=== PATIENT | female | born 1990 | race Caucasian/White ===

== ENCOUNTER → 2016-10-16 | Outpatient (CLI) | payer OTHER ==
--- NOTE | 2016-10-16 16:18 | DX ---
Limited lumbar spine AP and lateral. History: Chronic back pain with right sciatica. Findings: Vertebral body heights are well maintained. There are no subluxations. No fractures are see n. Intervertebral disks appear to be normal. Impression: Normal limited lumbar spine series.
== END ==
LOC: FIMAGING 13:24
PROVIDERS: ATTEND Family Medicine
DX: M54.41 Lumbago with sciatica, right side (principal); G89.29 Other chronic pain

== ENCOUNTER → 2016-11-04 | Outpatient (CLI) | payer OTHER ==
--- NOTE | 2016-11-04 23:16 | MR ---
MRI Lower Extremity, Right Hip HISTORY: Right hip pain. Pain refractory to physical therapy. ICD-10 code G89.29. TECHNIQUE: MRI was performed of the right hip and pelvis using a 3.0 [employer] MRI system. Large field- of-view coronal and axial imaging was obtained of the pelvis. Small [id number] oblique axial, obl ique coronal, and sagittal imaging was obtained of the right hip. Standard imaging sequences were pe rformed. FINDINGS: No significant bone marrow abnormality is visualized. No evidence for avascular necrosis of the femoral head. No evidence for a stress fracture of the femoral neck. No evidence for a joint effusion. No evidence for sacroiliitis. The femoral head-neck junction of the right hip is within normal limits. No evidence for an osseous bump. Small smooth partial defect is seen in the posterosuperior labrum, more likely a normal varian t than a labral tear. No other findings for a labral tear. No evidence for an articular cartilage d efect of the femoral head or acetabulum. The ligamentum teres is intact. The capsule is unremarkabl e. The visualized musculature and tendons are unremarkable. No evidence for a soft tissue mass or a bnormal fluid collection. IMPRESSION: No definite labral tear is visualized. No evidence for underlying femoral acetabular im pingement.
== END ==
LOC: FIMAGING 18:59
PROVIDERS: ATTEND Family Medicine
DX: G89.29 Other chronic pain (principal); M25.551 Pain in right hip